=== PATIENT | male | born 1935 | race Caucasian/White ===

== ENCOUNTER 2017-06-22 20:34 | Inpatient (IN) | payer OTHER ==
[~2017-06-22] VITALS: Ht 167.6 cm; Wt 90.7 kg
[~2017-06-22 20:34] MED LIST: 384 PO; AMA1 PO; ANTIVERT/2525 M1 PO; BENICAR PO; BICALUTAMIDE50 MG; LUPRON; NOR5; PRI20 PO; VITAMIN D3 PO
[2017-06-22 21:06] VITALS: Ht 167.6 cm; Wt 90.7 kg
[2017-06-22 22:01] LABS: BASOPHIL % 0.4 % (0-2); PLATELET COUNT 230 x10^3mcL (130-400); RED CELL DISTRIBUTION WIDTH 14.1 % (11.5-14.5)
[2017-06-22 22:05] LABS: CALCIUM 9.1 mg/dL (8.5-10.1); CARBON DIOXIDE 21.9 mmol/L (21-32); CHLORIDE SERUM 102 mmol/L (98-107); CREATININE SERUM 0.9 mg/dL (0.7-1.3); GLUCOSE SERUM 153 mg/dL (74-106); POTASSIUM SERUM 3.2 mmol/L (3.5-5.1); SODIUM SERUM 138 mmol/L (136-145)
[2017-06-22 22:10] LABS: ALBUMIN 3.5 g/dL (3.4-5.0); ALKALINE PHOSPHATASE 62 U/L (46-116); ALT/SGPT 52 U/L (16-63); AST/SGOT 66 U/L (15-37); BILIRUBIN TOTAL 0.75 mg/dL (0.20-1.00); TOTAL PROTEIN, SERUM 7.5 g/dL (6.4-8.2)
[2017-06-23] VITALS (7 sets, daily range): BP systolic 114–133; BP diastolic 55–79
[2017-06-23 03:06] LABS: CHOLESTEROL/HDL RATIO 3.1; MAGNESIUM 1.7 mg/dL (1.8-2.4); PHOSPHOROUS 2.5 mg/dL (2.5-4.9)
[2017-06-23 03:16] LABS: FREE T4 0.97 ng/dL (0.76-1.46); FREE THYROXINE INDEX 2.2 ug/dL (1.4-4.5); T4(THYROXINE) 6.6 ug/dL (4.7-13.3)
[2017-06-23] MEDS ORDERED: LOSARTAN POTASS50 M1 PO (03:45)
[2017-06-23 03:57] LABS: T3 TOTAL 0.58 ng/mL
[2017-06-23 07:08] LABS: BASOPHIL % 0.6 % (0-2); PLATELET COUNT 216 x10^3mcL (130-400); RED CELL DISTRIBUTION WIDTH 13.9 % (11.5-14.5)
[2017-06-23 07:34] LABS: CALCIUM 8.9 mg/dL (8.5-10.1); CARBON DIOXIDE 19.6 mmol/L (21-32); CHLORIDE SERUM 100 mmol/L (98-107); CREATININE SERUM 0.8 mg/dL (0.7-1.3); GLUCOSE SERUM 122 mg/dL (74-106); MAGNESIUM 3.2 mg/dL (1.8-2.4); PHOSPHOROUS 2.9 mg/dL (2.5-4.9); SODIUM SERUM 133 mmol/L (136-145)
[2017-06-23 07:53] LABS: POTASSIUM SERUM 2.7 mmol/L (3.5-5.1)
[2017-06-23 13:28] LABS: CALCIUM 8.3 mg/dL (8.5-10.1); CARBON DIOXIDE 18.4 mmol/L (21-32); CHLORIDE SERUM 103 mmol/L (98-107); CREATININE SERUM 0.9 mg/dL (0.7-1.3); GLUCOSE SERUM 208 mg/dL (74-106); POTASSIUM SERUM 3.3 mmol/L (3.5-5.1); SODIUM SERUM 136 mmol/L (136-145)
[2017-06-24 06:44] VITALS: BP 140/76
[2017-06-24 07:13] LABS: CALCIUM 8.7 mg/dL (8.5-10.1); CARBON DIOXIDE 23.7 mmol/L (21-32); CHLORIDE SERUM 104 mmol/L (98-107); CREATININE SERUM 0.8 mg/dL (0.7-1.3); GLUCOSE SERUM 117 mg/dL (74-106); PHOSPHOROUS 2.8 mg/dL (2.5-4.9); POTASSIUM SERUM 3.2 mmol/L (3.5-5.1); SODIUM SERUM 139 mmol/L (136-145)
[2017-06-24 07:21] LABS: BASOPHIL % 0.6 % (0-2); PLATELET COUNT 175 x10^3mcL (130-400); RED CELL DISTRIBUTION WIDTH 14.2 % (11.5-14.5)
[2017-06-24 09:10] VITALS: BP 127/81
[2017-06-24 12:08] VITALS: BP 141/75
[2017-06-24 18:15] VITALS: BP 140/66
[2017-06-24 22:06] VITALS: BP 108/39
[2017-06-25 03:57] LABS: CALCIUM 8.9 mg/dL (8.5-10.1); CARBON DIOXIDE 23.7 mmol/L (21-32); CHLORIDE SERUM 104 mmol/L (98-107); CREATININE SERUM 0.9 mg/dL (0.7-1.3); GLUCOSE SERUM 135 mg/dL (74-106); POTASSIUM SERUM 3.4 mmol/L (3.5-5.1); SODIUM SERUM 138 mmol/L (136-145)
[2017-06-25 09:24] VITALS: BP 149/82
[2017-06-25 12:15] VITALS: BP 114/57
[2017-06-25] MEDS ORDERED: PLAVIX75 M1 PO (13:52)
[2017-06-25] MEDS ORDERED: LAC PO (15:19)
[2017-06-25] MEDS ORDERED: CLEOCIN HCL300 MG PO (15:19)
[2017-06-25] MEDS ORDERED: LEVAQUIN750 MG PO (15:19)
[2017-06-25] MEDS ORDERED: LIPI10 PO (15:20)
[2017-06-25 16:35] VITALS: BP 114/57
== END 2017-06-25 17:01 | disposition home or self-care (01) | DRG 177 ==
LOC: ED 20:34 → DU 06-23 00:08 → EDBEDREQTM 06-23 00:29 → EDBEDREQSVC 06-23 00:29 → EDBEDREQDT 06-23 00:29 → EDBEDREQ 06-23 00:29 → DU 06-23 03:29
PROVIDERS: Emergency Medicine; Student in an Organized Health Care Education/Training Program
DX: J69.0 Pneumonitis due to inhalation of food and vomit (principal); N17.0 Acute kidney failure with tubular necrosis; I21.4 Non-ST elevation (NSTEMI) myocardial infarction; J09.X1 Influenza due to identified novel influenza A virus with pneumonia; E86.0 Dehydration; E83.42 Hypomagnesemia; E87.6 Hypokalemia; E11.51 Type 2 diabetes mellitus with diabetic peripheral angiopathy without gangrene; K76.0 Fatty (change of) liver, not elsewhere classified; K21.9 Gastro-esophageal reflux disease without esophagitis; I10 Essential (primary) hypertension; C61 Malignant neoplasm of prostate; Z79.84 Long term (current) use of oral hypoglycemic drugs; Z87.891 Personal history of nicotine dependence; Z22.322 Carrier or suspected carrier of Methicillin resistant Staphylococcus aureus; Z68.33 Body mass index [BMI] 33.0-33.9, adult
CPT/HCPCS: 82962; 83880; 84439; 87804; J1644; J1956; J2060; J3475; J3480; J3490; J7030; J7620; J8999; Q0092

== ENCOUNTER 2018-06-13 20:46 | Inpatient (IN) | payer OTHER, MEDICARE, MEDICAID ==
[~2018-06-13] VITALS: Ht 167.6 cm; Wt 93.9 kg
[~2018-06-13 20:46] MED LIST changes: +CLEOCIN HCL300 MG PO; +LAC PO; +LEVAQUIN750 MG PO; +LIPI10 PO; +LOSARTAN POTASS50 M1 PO; +PLAVIX75 M1 PO
[2018-06-13 20:47] VITALS: Ht 167.6 cm; Wt 93.9 kg
[2018-06-13 21:14] LABS: BASOPHIL % 0.4 % (0-2); PLATELET COUNT 275 x10^3mcL (130-400); RED CELL DISTRIBUTION WIDTH 13.7 % (11.5-14.5)
[2018-06-13 21:23] LABS: CALCIUM 8.6 mg/dL (8.5-10.1); CHLORIDE SERUM 109 mmol/L (98-107); GLUCOSE SERUM 268 mg/dL (74-106); POTASSIUM SERUM 4.2 mmol/L (3.5-5.1); SODIUM SERUM 143 mmol/L (136-145)
[2018-06-13 21:27] LABS: ALBUMIN 3.4 g/dL (3.4-5.0); ALKALINE PHOSPHATASE 58 U/L (46-116); ALT/SGPT 60 U/L (16-63); AST/SGOT 26 U/L (15-37); BILIRUBIN TOTAL 1.02 mg/dL (0.20-1.00); TOTAL PROTEIN, SERUM 6.5 g/dL (6.4-8.2)
[2018-06-13] MEDS ORDERED: EXCEDRIN EXTRA1 EACH (22:15)
[2018-06-13] MEDS ORDERED: FOLGARD1 TAB (22:16)
[2018-06-13] MEDS ORDERED: CRESTOR10 M1 (22:16)
[2018-06-13] MEDS ORDERED: LOSARTAN POTASS25 M1 (22:17)
[2018-06-13] MEDS ORDERED: NOR5 (22:17)
[2018-06-13 23:11] LABS: MAGNESIUM 1.5 mg/dL (1.8-2.4); PHOSPHOROUS 2.5 mg/dL (2.5-4.9)
[2018-06-13 23:14] LABS: CHOLESTEROL/HDL RATIO 3.1
[2018-06-13 23:44] VITALS: BP 161/80
[2018-06-14 04:19] VITALS: BP 128/67
[2018-06-14 07:20] LABS: BASOPHIL % 0.2 % (0-2); PLATELET COUNT 256 x10^3mcL (130-400); RED CELL DISTRIBUTION WIDTH 13.6 % (11.5-14.5)
[2018-06-14 07:43] LABS: CALCIUM 8.6 mg/dL (8.5-10.1); CARBON DIOXIDE 21.6 mmol/L (21-32); CHLORIDE SERUM 113 mmol/L (98-107); CREATININE SERUM 0.8 mg/dL (0.7-1.3); GLUCOSE SERUM 175 mg/dL (74-106); MAGNESIUM 1.9 mg/dL (1.8-2.4); PHOSPHOROUS 2.1 mg/dL (2.5-4.9); POTASSIUM SERUM 3.7 mmol/L (3.5-5.1); SODIUM SERUM 146 mmol/L (136-145)
[2018-06-14 08:30] VITALS: BP 133/75
[2018-06-14 13:39] VITALS: BP 140/71
[2018-06-14 14:45] LABS: microscopic required? NO
[2018-06-14 14:51] LABS: UA SPECIFIC GRAVITY >=1.030 (1.005-1.035); urine erythrocyte NEGATIVE (NEGATIVE)
[2018-06-14 17:00] VITALS: BP 156/75
[2018-06-14 21:31] VITALS: BP 162/83
[2018-06-15 06:26] VITALS: BP 176/90
[2018-06-15 07:03] LABS: BASOPHIL % 1.2 % (0-2); PLATELET COUNT 219 x10^3mcL (130-400); RED CELL DISTRIBUTION WIDTH 13.1 % (11.5-14.5)
[2018-06-15 07:15] LABS: CALCIUM 8.6 mg/dL (8.5-10.1); CARBON DIOXIDE 23.5 mmol/L (21-32); CHLORIDE SERUM 111 mmol/L (98-107); CREATININE SERUM 0.8 mg/dL (0.7-1.3); GLUCOSE SERUM 125 mg/dL (74-106); PHOSPHOROUS 2.5 mg/dL (2.5-4.9); POTASSIUM SERUM 3.6 mmol/L (3.5-5.1); SODIUM SERUM 142 mmol/L (136-145)
[2018-06-15 08:46] VITALS: BP 151/70
[2018-06-15 12:46] VITALS: BP 133/54
[2018-06-15 17:07] VITALS: BP 122/69
[2018-06-15 22:34] VITALS: BP 145/79
[2018-06-16 04:57] VITALS: BP 146/71
[2018-06-16 07:01] LABS: BASOPHIL % 1.2 % (0-2); PLATELET COUNT 238 x10^3mcL (130-400); RED CELL DISTRIBUTION WIDTH 12.9 % (11.5-14.5)
[2018-06-16 07:23] LABS: CALCIUM 8.7 mg/dL (8.5-10.1); CARBON DIOXIDE 23.6 mmol/L (21-32); CHLORIDE SERUM 110 mmol/L (98-107); CREATININE SERUM 0.8 mg/dL (0.7-1.3); GLUCOSE SERUM 133 mg/dL (74-106); POTASSIUM SERUM 3.4 mmol/L (3.5-5.1); SODIUM SERUM 146 mmol/L (136-145)
[2018-06-16] MEDS ORDERED: NATURAL IRON65 MG PO (10:57)
[2018-06-16] MEDS ORDERED: GOOD SENSE OMEP20 MG PO (10:57)
[2018-06-16] MEDS ORDERED: METAMUCIL PACK3.4 GM PO (10:58)
[2018-06-16] MEDS ORDERED: PLAVIX75 M1 PO (10:59)
[2018-06-16 11:27] VITALS: BP 122/60
== END 2018-06-16 11:59 | disposition home or self-care (01) | DRG 377 ==
LOC: ED 20:46 → DU 22:04
PROVIDERS: Emergency Medicine; Family Medicine; Internal Medicine Gastroenterology
PROC: 0W3P8ZZ Control Bleeding in Gastrointestinal Tract, Via Natural or Artificial Opening Endoscopic (ICD-10-PCS; principal; 2018-06-15 09:30)
PROC: 0DB68ZX Excision of Stomach, Via Natural or Artificial Opening Endoscopic, Diagnostic (ICD-10-PCS; 2018-06-15 09:30)
PROC: 0D5F8ZZ Destruction of Right Large Intestine, Via Natural or Artificial Opening Endoscopic (ICD-10-PCS; 2018-06-16)
PROC: 30233N1 Transfusion of Nonautologous Red Blood Cells into Peripheral Vein, Percutaneous Approach (ICD-10-PCS; 2018-06-16)
PROC: 0W3P8ZZ Control Bleeding in Gastrointestinal Tract, Via Natural or Artificial Opening Endoscopic (ICD-10-PCS; 2018-06-16 08:00)
DX: K25.4 Chronic or unspecified gastric ulcer with hemorrhage (principal); N17.0 Acute kidney failure with tubular necrosis; D62 Acute posthemorrhagic anemia; D68.69 Other thrombophilia; E87.0 Hyperosmolality and hypernatremia; K57.31 Diverticulosis of large intestine without perforation or abscess with bleeding; E11.65 Type 2 diabetes mellitus with hyperglycemia; K21.9 Gastro-esophageal reflux disease without esophagitis; D12.2 Benign neoplasm of ascending colon; E83.42 Hypomagnesemia; E83.39 Other disorders of phosphorus metabolism; I10 Essential (primary) hypertension; I25.2 Old myocardial infarction; Z68.33 Body mass index [BMI] 33.0-33.9, adult; Z87.891 Personal history of nicotine dependence; Z95.5 Presence of coronary angioplasty implant and graft; Z85.46 Personal history of malignant neoplasm of prostate; Z79.84 Long term (current) use of oral hypoglycemic drugs; I25.10 Atherosclerotic heart disease of native coronary artery without angina pectoris
CPT/HCPCS: 43235; 45378; 82962; 83880; 97110-GP; 97116-GP; C9113; J1200; J1610; J2250; J2310; J3010; J3475; J3490; J7030; Q0092